=== PATIENT | female | born 1965 | race African-American/Black ===

== ENCOUNTER 2022-02-08 18:27 | Emergency (ER) | payer OTHER, SELFPAY ==
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
[2022-02-08 18:36] VITALS: BP 158/89; PULSE 88; RESP 16; TEMP 36.3; O2SAT 100
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
== END 2022-02-08 21:15 | disposition home or self-care (01) ==
PROVIDERS: Emergency Provider Emergency Medicine
DX: S89.91XA Unspecified injury of right lower leg, initial encounter (principal); V63.5XXA Driver of heavy transport vehicle injured in collision with car, pick-up truck or van in traffic accident, initial encounter
CPT/HCPCS: 73564; 99283; 99284